=== PATIENT | female | born 1960 | race Caucasian/White ===

== ENCOUNTER 2024-02-17 00:46 | Emergency (ER) | payer OTHER, SELFPAY ==
[2024-02-17 00:46] VITALS: BMI 23.9
[2024-02-17 00:48] VITALS: BP 147/100
--- NOTE | 2024-02-17 01:44 | ED.GENMED ---
History of Present Illness
General
Chief Complaint: Ear Problem
Source: patient
Time Seen by Provider: 02/17/24 01:10
Travel History
Have you had any contact with someone who has COVID-19?: No
Do you have any symptoms of coronavirus? Fever > 100 degrees, chills, cough, shortness of breath, sore throat, loss of taste or smell, muscle aches, or headache?: No
History of Present Illness
History of Present Illness:
64-year-old female with past medical history of breast cancer, anxiety, chronic tinnitus presenting to the emergency department for evaluation of worsening tinnitus to her bilateral ears but right greater than left, slightly more pulsatile in
nature, with patient stating she is just at her wits end and does not know what else to do. She has seen 2 separate ENTs for this issue as well as her primary care physician and also saw her construction analyst recently and brought this issue up to them
but they did not find any abnormalities cardiac jacome. Patient notes that she has associated hearing loss and intermittent vertigo. She denies any fevers or recent illnesses, visual disturbances, focal weakness or numbness, headache or any other
concerns.
Past History
Past History
ED Past Medical History: Cancer, Hypothyroidism and Psychiatric (Anxiety)
ED Past Surgical History: Gynecological
Social History
Tobacco: Non-smoker
Alcohol: None
Drug: None
Personal:
Living: with family
Employment: Employed (Microbiologist)
Family History
Family History: Cancer (Breast in mother)
Review of Systems
Review of Systems
All Other Systems: ROS reviewed and negative except as documented in HPI and ROS
Phy Exam
Physical Exam
Physical Exam:
GENERAL: Alert , in no apparent distress
EYE: pupils equal and reactive, 4 mm bilateral, EOMI
NECK: Supple, no significant adenopathy. No carotid bruit
ENT: o/p clr, mmm. TMs clear bilateral
CARDIAC: Regular rate and rhythm, no murmur.
LUNGS: Clear breath sounds bilaterally, no acute respiratory distress, no wheezes/rales/rhonchi
NEUROLOGICAL: Alert and oriented, ambulates with steady gait
SKIN: Warm and dry, skin intact.
MUSCULOSKELETAL: well perfused.
PSYCH: Normal and appropriate interaction.
Scores
Heart Failure Risk
Heart Failure Risk Score: Not Applicable
Heart Score for Chest Pain Patients
STEMI patient?: Not applicable
Withdrawal Assessment of Alcohol
Withdrawal Assessment Completed?: Not applicable
Course
Vital Signs
Initial and Last Documented VS:
Initial Vital Signs
Temp Pulse Resp BP
98.2 F 100 16 147/100
02/17/24 00:48 02/17/24 00:48 02/17/24 00:48 02/17/24 00:48
Last Documented Vital Signs
Temp Pulse Resp BP Pulse Ox
98.2 F 82 16 142/86 98
02/17/24 00:48 02/17/24 02:04 02/17/24 00:48 02/17/24 02:04 02/17/24 02:04
MDM/Problems Addressed
Differential Diagnosis Includes:
Tinnitus, M�ni�re's disease, hypertension, patient was asking about aneurysm but given her symptoms been ongoing for 2 years, bilateral in nature, unchanged from usual this evening I am much less suspicious for aneurysm
MDM/Problems Addressed:
64-year-old female presenting emergency department for evaluation of tinnitus that is mostly chronic issue, seen by multiple different specialist with no clear etiology. She does have hearing loss and vertigo associated with this intermittently.
Patient states symptoms this evening are not any different than her usual but she is becoming increasingly frustrated with his symptoms. I did offer CTA of the head and neck for any vascular pathology rule out however after discussion with patient
she ultimately decided she wanted to forego this imaging. I provided the patient with information for a different ENT for another opinion on her presentation. Possible M�ni�re's disease given the hearing loss and vertigo. Patient is aware of
return precautions emergency department but otherwise stable for discharge home.
*Pulse Oximetry
Patient hypoxic: no
*Critical Care Note
Total Time (30-74mins, 75-104mins- exclusive of procedures): Not Applicable
Data Reviewed
Further Testing Considered But Not Given:
CTA head/neck but patient deferred.
Patient Management
Social determinants of health affecting care: Strong social support
ED Attending Note
-
Portions of this chart may have been created with voice recognition software.� Occasional wrong word or��sound alike� substitutions may have occurred due to the inherent limitations of voice recognition software.
Discharge Plan
Departure
Patient Disposition: Home (Routine Discharge)
Date of Disposition: 02/17/24
Time of Disposition: 01:44
Patient with high blood pressure during this ER visit?: Yes
Discharge Problem:
Tinnitus
Instructions: Tinnitus (ringing in the ears)
Prescriptions:
No Action
levothyroxine 50 MCG tablet
50 mg PO DAILY
Patient Comments:
except Tuesday
levothyroxine 50 MCG tablet
100 mg PO .
amoxicillin-pot clavulanate 1 TABLET tablet
1 tab PO Q12 Qty: 14 0RF
Referrals:
Rj Arriaga MD [Active] - (ENT)
Interventions
Interventions:
*Risk Screen - Suicide Last Done: 02/17/24 00:48
*General Assessment Last Done: 02/17/24 00:48
*Neglect/Abuse Screening Last Done: 02/17/24 00:48
ED- Fall Risk Assessment Last Done: 02/17/24 00:48
*ED COVID-19 Vaccine History Last Done: 02/17/24 00:48
*Nursing Disposition Last Done: 02/17/24 02:04
Discharge Date and Time
Discharge Date/Time: 02/17/24 02:09
Print Language: BOTSWANAN
[2024-02-17 02:04] VITALS: BP 142/86
== END 2024-02-17 02:09 | disposition home or self-care (01) ==
LOC: EMR 00:46
PROVIDERS: EMERGENCY PHYSICIAN Student in an Organized Health Care Education/Training Program; FAMILY PHYSICIAN Family Medicine
DX: H93.13 Tinnitus, bilateral (principal); I10 Essential (primary) hypertension
CPT/HCPCS: 99283

== ENCOUNTER 2025-04-28 07:12 | Emergency (ER) | payer OTHER, SELFPAY ==
[2025-04-28 07:16] VITALS: BP 152/91
--- NOTE | 2025-04-28 08:28 | ED.GENMED ---
History of Present Illness
General
Chief Complaint: Abdominal Symptoms
Source: patient
Exam Limitations: none
Time Seen by Provider: 04/28/25 08:16
History of Present Illness
History of Present Illness:
65-year-old female presents with bilateral abdominal discomfort with nausea worsening over the past 2 to 3 days. She also notes oil droplets floating in the water when she has a bowel movement. She has remote history of breast cancer requiring
bilateral mastectomies. She has had bowel hypomotility over the past 3 months with which she has seen family doctor for [facility] for. She denies watery loose stool. No vomiting. No chest pain. No fevers. No other complaints. Prior surgical history
includes cystectomy as well as hysterectomy
Past History
Past History
ED Past Medical History: Cancer, Hypothyroidism and Psychiatric (Anxiety)
ED Past Surgical History: Gynecological
Social History
Tobacco: Non-smoker
Alcohol: None
Drug: None
Personal:
Living: with family
Employment: Employed (Microbiologist)
Family History
Family History: Cancer (Breast in mother)
Phy Exam
Physical Exam
Physical Exam:
General: Well-appearing female no acute respiratory distress
HEENT normocephalic atraumatic
Heart: Regular rate and rhythm
Lungs: Clear no wheeze
Abdomen is soft mildly tender to the mid abdomen no guarding
Ext: No cyanosis or edema
Course
Orders/Labs/Results
Orders:
Orders
04/28/25 08:27
CT Abd/pel W Iv And Oral Contr Urgent
Comment:
Reason For Exam: nausea, abdominal pain, change in stool
Iohexol [Omnipaque] See Protocol PO NOW STA
04/28/25 08:47
Complete Blood Count/With Diff Urgent
Comprehensive Metabolic Panel Urgent
Lipase Urgent
Abnormal Lab Results
04/28/25
08:47
Absolute Lymphs (auto) 1.1 L 10^3/uL
(1.2-3.4)
Lymphocytes % 18.0 L %
(20.5-51.1)
Chloride 108 H mmol/L
(98-107)
Glucose 108 H mg/dl
(70-99)
04/28/25 08:47
04/28/25 08:47
Vital Signs
Initial and Last Documented VS:
Initial Vital Signs
Temp Pulse Resp BP Pulse Ox
98.4 F 112 18 152/91 99
04/28/25 07:16 04/28/25 07:16 04/28/25 07:16 04/28/25 07:16 04/28/25 07:16
Last Documented Vital Signs
Temp Pulse Resp BP Pulse Ox
98.4 F 112 18 152/91 99
04/28/25 07:16 04/28/25 07:16 04/28/25 07:16 04/28/25 07:16 04/28/25 08:31
MDM/Problems Addressed
Differential Diagnosis Includes:
Abdominal discomfort with nausea and change in stool. She notes oil floating in the water when she has bowel movements. Consider viral illness versus pancreatitis versus biliary issues. Given her tenderness and discomfort we will order CT scan
check labs including lipase
*Pulse Oximetry
SaO2: 99
Oxygen Mode of Delivery: Room air
Patient hypoxic: no
*Critical Care Note
Total Time (30-74mins, 75-104mins- exclusive of procedures): Not Applicable
Update Note
Update Note:
Workup here essentially unremarkable with negative labs and CT. Patient reassured. She will follow-up with her family doctor and has an appointment with her GI team. No indication for admission. Stable for
ED Attending Note
-
Portions of this chart may have been created with voice recognition software.� Occasional wrong word or��sound alike� substitutions may have occurred due to the inherent limitations of voice recognition software.
Discharge Plan
Departure
Patient Disposition: Home (Routine Discharge)
Date of Disposition: 04/28/25
Time of Disposition: 12:52
Patient with high blood pressure during this ER visit?: No
Discharge Problem:
Nausea
Instructions: Nausea and Vomiting, Adult (DC)
Prescriptions:
No Action
levothyroxine 50 MCG tablet
50 mg PO DAILY
Patient Comments:
except Tuesday
levothyroxine 50 MCG tablet
100 mg PO .
amoxicillin-pot clavulanate 1 TABLET tablet
1 tab PO Q12 Qty: 14 0RF
Referrals:
Bib Reyna MD [Family Provider, Family Practice]
Activity Restrictions/Additional Instructions:
Continue with bland diet. Return here if worse otherwise follow-up with your doctors as planned
Interventions
Interventions:
*Risk Screen - Suicide Last Done: 04/28/25 07:16
*General Assessment Last Done: 04/28/25 07:16
*Neglect/Abuse Screening Last Done: 04/28/25 07:16
*ED- Fall Risk Assessment Last Done: 04/28/25 08:31
*ED COVID-19 Vaccine History Last Done: 04/28/25 08:31
GM-Kfkbvd-Fmwatwshws Assessment Last Done: 04/28/25 08:31
Discharge Date and Time
Print Language: URDU
[2025-04-28 08:30] VITALS: BMI 23.1
[2025-04-28] MEDS: OMNIPAQUE 50 ML PO (08:47)
[2025-04-28 09:00] LABS: Hematocrit 39.7 % (37.0-47.0); Hemoglobin 13.6 g/dL (12.0-16.0); Mean Corp Hgb Conc. 34.3 g/dL (33.0-37.0); Mean Corpuscular Volume 90.4 fL (81.0-99.0); Nucleated Red Blood Cells % 0 %; Platelet Count 193 10^3/uL (130-400); Red Cell Dist. Width 12.4 % (11.5-14.5)
[2025-04-28 09:24] LABS: ALT (SGPT) 16 U/L (0-35); AST (SGOT) 23 U/L (14-36); Albumin 4.3 g/dl (3.5-5.0); Alkaline Phosphatase 89 U/L (38-126); Blood Urea Nitrogen 17 mg/dl (7-17); Calcium 10.0 mg/dl (8.4-10.2); Carbon Dioxide 30 mmol/L (22-30); Chloride 108 mmol/L (98-107); Estimated Creatinine Clearance 86 ml/min; Glucose 108 mg/dl (70-99); Lipase 80 U/L (23-300); Potassium 4.1 mmol/L (3.5-5.1); Sodium 140 mmol/L (135-145); Total Protein 7.1 g/dl (6.3-8.2); eGFR > 60.00
[2025-04-28 13:03] VITALS: BP 104/52
== END 2025-04-28 13:07 | disposition home or self-care (01) ==
LOC: EMR 07:12
PROVIDERS: Physician Assistant; EMERGENCY PHYSICIAN Emergency Medicine; FAMILY PHYSICIAN Family Medicine
DX: R11.0 Nausea (principal); R10.9 Unspecified abdominal pain; R19.4 Change in bowel habit; Z85.3 Personal history of malignant neoplasm of breast
CPT/HCPCS: 99285; 74177; 80053; 83690; 85025; Q9967